=== PATIENT | female | born 1995 | race Hispanic/Latino ===

== ENCOUNTER 2018-02-08 13:19 | Emergency (ER) | payer MEDICAID ==
[~2018-02-08 13:19] MED LIST: MO6B PO
[2018-02-08 14:13] LABS: APPEARANCE,URINE Clear (CLEAR); BILIRUBIN,URINE Negative (NEGATIVE); COLOR,URINE Yellow (YELLOW); GLUCOSE, URINE (UA) Negative (NEGATIVE); KETONES,URINE Negative (NEGATIVE); LEUKOCYTE ESTERASE ,URINE Negative (NEGATIVE); NITRATE,URINE Negative (NEGATIVE); OCCULT BLOOD,URINE Large (NEGATIVE); PROTEIN,URINE Negative (NEGATIVE); UROBILINOGEN,URINE 0.2 mg/dL (0.2-1.0)
[2018-02-08 14:16] LABS: HCG,QUAL RESULT NEGATIVE (NEGATIVE)
[2018-02-08 14:43] LABS: WBC,URINE 0-1 /HPF (0-1)
[2018-02-08 14:44] LABS: BACTERIA,URINE Rare /HPF (None Seen); SQUAMOUS EPITHELIAL CELL,UR Rare /HPF (0-2)
[2018-02-08 15:35] LABS: RAPID GROUP A STREP NEGATIVE (NEGATIVE)
== END 2018-02-08 16:06 | disposition home or self-care (01) ==
LOC: EDH 13:19
DX: J06.9 Acute upper respiratory infection, unspecified (principal); G43.909 Migraine, unspecified, not intractable, without status migrainosus
CPT/HCPCS: 81001; 81025; 87804; 87880

== ENCOUNTER 2018-06-11 13:50 | Emergency (ER) | payer MEDICAID, OTHER | END 2018-06-11 14:41 | disposition home or self-care (01) | LOC: EDH 13:50 | DX: R05 Cough (principal); R09.89 Other specified symptoms and signs involving the circulatory and respiratory systems; J02.9 Acute pharyngitis, unspecified; H92.09 Otalgia, unspecified ear; G43.909 Migraine, unspecified, not intractable, without status migrainosus | CPT/HCPCS: 99281 ==

== ENCOUNTER → 2019-12-05 | Outpatient (CLI) | payer MEDICAID ==
[~2019-12-05] MED LIST changes: +GADODIAMIDE 10 MMOL/20 ML VIAL IV ONE; +IBUP-2088 PO; -MO6B PO
== END | disposition home or self-care (01) ==
LOC: RAH 13:16
PROVIDERS: ATTEND Otolaryngology Plastic Surgery within the Head & Neck
DX: H90.3 Sensorineural hearing loss, bilateral (principal)
CPT/HCPCS: 70553 ×2; A9579